=== PATIENT | male | born 1990 | race Hispanic/Latino ===

== ENCOUNTER → 2017-08-30 | Day surgery (SDC) | payer BC ==
[~2017-08-30] MED LIST: FENTANYL CITRATE/PF 100MCG/2 ML INJ ONE; LIDOCAINE HCL 2% LOCAL INJ 5 ML SDV VIAL INJ ONE; MIDAZOLAM HCL 2 MG/2 ML VIAL ONE; PROPOFOL IV EMULSION 10 MG/ML 50 ML VIAL ONE; TESTOSTERO100 MG/1 M INJ
== END | disposition home or self-care (01) ==
LOC: OR 06:15 → EDBD 06:15
PROVIDERS: ATTEND Internal Medicine Gastroenterology
DX: K92.1 Melena (principal); K64.8 Other hemorrhoids; E66.01 Morbid (severe) obesity due to excess calories; R06.83 Snoring; Z68.41 Body mass index [BMI] 40.0-44.9, adult; Z80.0 Family history of malignant neoplasm of digestive organs
CPT/HCPCS: 45378; J2001; J2250